=== PATIENT | male | born 1940 | race African-American/Black ===

== ENCOUNTER → 2018-01-04 | Outpatient (CLI) | payer MEDICARE, MEDICAID | END | disposition home or self-care (01) | LOC: CT 08:30 → EDBD 09:00 | DX: I51.7 Cardiomegaly (principal); K44.9 Diaphragmatic hernia without obstruction or gangrene; K75.3 Granulomatous hepatitis, not elsewhere classified; E11.9 Type 2 diabetes mellitus without complications | CPT/HCPCS: 71250 ==

== ENCOUNTER 2018-02-01 12:59 | Emergency (ER) | payer MEDICARE, MEDICAID ==
[~2018-02-01] VITALS: Ht 165.1 cm; Wt 82.0 kg
[2018-02-01 13:04] VITALS: BP 145/103
== END 2018-02-01 15:41 | disposition left against medical advice (07) ==
LOC: ER 12:59
DX: M54.5 Low back pain (principal); R10.31 Right lower quadrant pain
CPT/HCPCS: 99281

== ENCOUNTER 2023-09-06 18:55 | Emergency (ER) | payer MEDICAID, MEDICARE ==
[~2023-09-06] VITALS: Ht 165.1 cm; Wt 77.0 kg
[2023-09-06 18:56] VITALS: O2SAT 99
[2023-09-06] MEDS: TETRACAINE 0.5% OPHTH DROPS 4ML LEFTEYE ONE (23:57)
[2023-09-06] MEDS: FLUORESCEIN SODIUM 1MG/STRIP LEFTEYE ONE (23:58)
[2023-09-07 01:35] VITALS: BP 127/74; PULSE 89; RESP 16; TEMP 98.7
[2023-09-07] MEDS ORDERED: ERYT1OIN6 LEFTEYE (02:00)
== END 2023-09-07 02:08 | disposition home or self-care (01) ==
LOC: ER 18:55
DX: S05.02XA Injury of conjunctiva and corneal abrasion without foreign body, left eye, initial encounter (principal); Z98.890 Other specified postprocedural states; X58.XXXA Exposure to other specified factors, initial encounter; Y93.89 Activity, other specified; Y92.89 Other specified places as the place of occurrence of the external cause; Y99.8 Other external cause status
CPT/HCPCS: 99283